=== PATIENT | female | born 1940 | race Two or more races ===

== ENCOUNTER 2017-04-07 11:32 | Inpatient (IN) | payer MEDICARE, MEDICAID ==
[~2017-04-07] VITALS: Ht 157.5 cm; Wt 49.9 kg
[2017-04-07 11:53] VITALS: BP 108/70
[2017-04-07] MEDS ORDERED: ATIVAN1 MG ORAL (12:02)
[2017-04-07] MEDS ORDERED: MULTIVITAMINS1 EAC2 ORAL (12:02)
[2017-04-07] MEDS ORDERED: FLEET ENEMA133 ML RECTAL (12:02)
[2017-04-07] MEDS ORDERED: BISAC-EVAC10 MG RC (12:02)
[2017-04-07] MEDS ORDERED: MILK OF MA400 MG/51 ORAL (12:02)
[2017-04-07] MEDS ORDERED: COLACE100 MG ORAL (12:02)
[2017-04-07] MEDS ORDERED: SENNA8.6 M2 PO (12:03)
[2017-04-07] MEDS ORDERED: ACETAMINOPHEN120 MG RECTAL (12:03)
[2017-04-07] MEDS ORDERED: PROTONIX40 MG ORAL (12:03)
[2017-04-07] MEDS ORDERED: RISPERDAL2 MG ORAL (12:03)
[2017-04-07] MEDS ORDERED: NAMENDA10 MG ORAL (12:03)
[2017-04-07] MEDS ORDERED: ACETAMINOPHEN325 M1 ORAL (12:03)
[2017-04-07 13:38] LABS: BASOPHILS % (AUTO) 0.8 % (0.0-2.0); EOSINOPHILS % (AUTO) 1.4 % (0.0-3.0); LYMPHOCYTES % (AUTO) 23.2 % (20.0-45.0); MEAN CORPUSCULAR HEMOGLOBIN 30.5 PG (27.0-31.0); MEAN CORPUSCULAR VOLUME 95 FL (80-99); MEAN PLATELET VOLUME 6.3 FL (6.5-10.1); NEUTROPHILS % (AUTO) 68.6 % (45.0-75.0); PLATELET COUNT 270 K/UL (150-450); RED BLOOD COUNT 4.65 M/UL (4.20-5.40); RED CELL DISTRIBUTION WIDTH 11.9 % (11.6-14.8); WHITE BLOOD COUNT 6.9 K/UL (4.8-10.8)
--- NOTE | 2017-04-07 13:38 | Diagnostic Imaging Report ---
Indication: Pelvic pain trauma Technique: Continuous helical transaxial imaging of the pelvis was obtained from the iliac crest to the pubic symphysis. Coronal 2-D reformats were also obtained. Study obtained in a Siemens sensation [address] Intravenous non-ionic contrast was administered. Total Dose length Product (DLP): [address] Dose Index Volume (CTDIvol): 11 mGy Comparison: None Findings: No acute fracture is identified. Alignment of the hips is anatomic. There are degenerative changes of the hip joints and sacroiliac joints bilaterally. There is an old fracture of the right pubis. The bones are osteopenic. There is a small left inguinal hernia containing fat. Impression: No acute injury identified. Osteoarthritis of both hips Small left inguinal hernia containing fat The CT scanner at [facility] is accredited by the [employer] and the scans are performed using dose optimization techniques as appropriate to a performed exam including Automatic Exposure control.
[2017-04-07 13:56] LABS: ALANINE AMINOTRANSFERASE 11 U/L (3-33); ANION GAP 15 (5-15); ASPARTATE AMINO TRANSFERASE 18 U/L (5-40); CALCIUM 9.5 mg/dL (8.6-10.2); CARBON DIOXIDE 21 mEQ/L (20-30); CHLORIDE 101 mEQ/L (98-107); CREATININE 0.7 mg/dL (0.5-0.9); HEMOLYSIS 9; POTASSIUM 3.6 mEQ/L (3.4-4.9); SODIUM 137 mEQ/L (135-145); TOTAL PROTEIN 8.3 g/dL (6.6-8.7)
--- NOTE | 2017-04-07 14:08 | Emergency Room Report ---
History of Present Illness General Chief Complaint: Pain Source: Medical Record Present Illness HPI 76-year-old female presents ED complaining of left hip pain times one day. Patient presents from half-way. Patient had x-rays which were negative however patient continues to complain of pain. 03/19, sharp, nonradiating. Unable to bear weight. No trauma noted. No other aggravating relieving factors. Denies any other associated symptoms Allergies: Coded Allergies: PENICILLINS (Verified Allergy, Unknown, 04/07/17) Patient History Past Medical History: none Past Surgical History: none Pertinent Family History: none Social History: Denies: smoking, alcohol use, drug use Last Menstrual Period: n/a Now: No Immunizations: UTD Reviewed Nursing Documentation: PMH: Agreed, PSxH: Agreed Review of Systems All Other Systems: negative except mentioned in HPI Physical Exam Vital Signs Date Time Temp Pulse Resp B/P (MAP) Pulse Ox O2 Delivery O2 Flow Rate FiO2 04/07/17 11:34 98.1 54 16 108/70 95 Sp02 EP Interpretation: reviewed, normal General Appearance: no apparent distress, alert, GCS 15, non-toxic Head: normocephalic, atraumatic Eyes: bilateral eye normal inspection, bilateral eye PERRL ENT: hearing grossly normal, normal pharynx, no angioedema, normal voice Neck: full range of motion, supple/symm/no masses Respiratory: chest non-tender, lungs clear, normal breath sounds, speaking full sentences Cardiovascular #1: regular rate, rhythm, no edema Cardiovascular #2: 2+ carotid (R), 2+ carotid (L), 2+ radial (R), 2+ radial (L) , 2+ dorsalis pedis (R), 2+ dorsalis pedis (L) Gastrointestinal: normal bowel sounds, non tender, soft, non-distended, no guarding, no rebound Rectal: deferred Genitourinary: normal inspection, no CVA tenderness Musculoskeletal: back normal, gait/station normal, decreased range of motion, tender - L hip Neurologic: alert, oriented x3, responsive, motor strength/tone normal, sensory intact, speech normal Psychiatric: judgement/insight normal, memory normal, mood/affect normal, no suicidal/homicidal ideation Reflexes: 3+ bicep (R), 3+ bicep (L), 3+ tricep (R), 3+ tricep (L), 3+ knee (R) , 3+ knee (L) Skin: normal color, no rash, warm/dry, well hydrated Lymphatic: no adenopathy Medical Decision Making Diagnostic Impression: Primary Impression: Acute hip pain Qualified Codes: M25.552 - Pain in left hip ER Course Hospital Course 76year-old female presents to ED with L hip pain Differential diagnoses include: fracture, dislocation, contusion Clinical course Patient placed on stretcher. bus monitor. After initial history and physical I ordered labs, IV fluids, UA, pain medication and CT scan Labs - no leukocytosis, Hb/Hct stable. electrolytes ok. CT pelvis bilateral osteoarthritis, no acute fx Patient given pain medications but still continues to have pain and unable to walk Case discussed with and he agreed to accept the patient to his service for further care and support I feel this is a highly complex case requiring extensive working including EKG/ Rhythm strip, Xray/CT/US, Blood/urine lab work, repeat exams while in ED, and administration of strong opiates/narcotics for pain control, admission to hospital or close patient follow up. Diagnosis - acute hip pain Patient admitted to floor in serious condition Labs Test 04/07/17 13:05 White Blood Count 6.9 K/UL (4.8-10.8) Red Blood Count 4.65 M/UL (4.20-5.40) Hemoglobin 14.2 G/DL (12.0-16.0) Hematocrit 44.3 % (37.0-47.0) Mean Corpuscular Volume 95 FL (80-99) Mean Corpuscular Hemoglobin 30.5 PG (27.0-31.0) Mean Corpuscular Hemoglobin Concent 32.0 G/DL (32.0-36.0) Red Cell Distribution Width 11.9 % (11.6-14.8) Platelet Count 270 K/UL (150-450) Mean Platelet Volume 6.3 FL (6.5-10.1) Neutrophils (%) (Auto) 68.6 % (45.0-75.0) Lymphocytes (%) (Auto) 23.2 % (20.0-45.0) Monocytes (%) (Auto) 6.0 % (1.0-10.0) Eosinophils (%) (Auto) 1.4 % (0.0-3.0) Basophils (%) (Auto) 0.8 % (0.0-2.0) Sodium Level 137 mEQ/L (135-145) Potassium Level 3.6 mEQ/L (3.4-4.9) Chloride Level 101 mEQ/L (98-107) Carbon Dioxide Level 21 mEQ/L (20-30) Anion Gap 15 (5-15) Blood Urea Nitrogen 22 mg/dL (7-23) Creatinine 0.7 mg/dL (0.5-0.9) Estimat Glomerular Filtration Rate mL/min (>60) Glucose Level 100 mg/dL (74-106) Calcium Level 9.5 mg/dL (8.6-10.2) Total Bilirubin 0.6 mg/dL (0.0-1.2) Aspartate Amino Transf (AST/SGOT) 18 U/L (5-40) Alanine Aminotransferase (ALT/SGPT) 11 U/L (3-33) Alkaline Phosphatase 101 U/L (35-104) Total Protein 8.3 g/dL (6.6-8.7) Albumin 4.3 g/dL (3.5-5.2) Globulin 4.0 g/dL Albumin/Globulin Ratio 1.0 (1.0-2.7) CT/MRI/US Diagnostic Results CT/MRI/US Diagnostic Results : Imaging Test Ordered: CT Pelvis Impression no acute fx. osteoarthritis of both hips Last Vital Signs Date Time Temp Pulse Resp B/P (MAP) Pulse Ox O2 Delivery O2 Flow Rate FiO2 04/07/17 11:53 98.1 16 108/70 95 04/07/17 11:34 54 Status: improved Disposition: ADMITTED INPATIENT Condition: Serious Referrals: MARBELLA KIRK (PCP) TOMASZ ESCOBAR M.D. Apr 07, 2017 14:08
[2017-04-07 16:00] VITALS: BP 126/81
[2017-04-07] MEDS ORDERED: Morphine Sulfate 4mg/ml Inj IVP PRN (16:15)
[2017-04-07] MEDS ORDERED: LORazepam Inj 2mg/ml 1ml IV PRN (16:15)
[2017-04-07] MEDS ORDERED: Morphine Sulfate 2mg/ml Inj IVP PRN (16:15)
[2017-04-07] MEDS ORDERED: Miralax 17gm pkt ORAL PRN (16:15)
[2017-04-07] MEDS ORDERED: LORazepam 1mg tab ORAL PRN (16:15)
[2017-04-07] MEDS ORDERED: Zolpidem 5mg tab ORAL PRN (16:15)
[2017-04-07] MEDS ORDERED: Mylanta II UD 30ml ORAL PRN (16:15)
[2017-04-07] MEDS: Memantine 10mg tab ORAL SCH (17:32)
[2017-04-07] MEDS: Heparin 5000 units/ml inj SUBQ SCH (20:51)
--- NOTE | 2017-04-07 23:30 | History and Physical Report ---
DATE OF ADMISSION: 04/07/2017 TIME OF EVALUATION: At 2 p.m. CONSULTANTS: 1. Mervin Steele M.D. 2. Marguerite Zarate M.D. 3. Kiel Foreman M.D. 4. Sara Galo M.D. CHIEF COMPLAINT: 1. Fall. 2. Hip pain. 3. Dementia. BRIEF HISTORY: This is a 76-year-old female, resident of [facility], presented to [facility] ER with increased hip pain, possible fall, increased confusion. The patient was diagnosed with the above and being admitted to medical floor for further treatment. Currently, calm, confused in ER [facility]. No complaints. PAST MEDICAL HISTORY: Dementia, confusion, and weakness. PAST SURGICAL HISTORY: Denies. MEDICATIONS: We will obtain list shortly ALLERGIES: Penicillin. SOCIAL HISTORY: No smoking. No alcohol. No intravenous drug abuse. FAMILY HISTORY: Noncontributory. REVIEW OF SYSTEMS: No chest pain or shortness of breath. No nausea, vomiting, or diarrhea. PHYSICAL EXAMINATION: GENERAL: Calm in bed, oriented x1, no acute distress. VITAL SIGNS: Temperature is 98 degrees, pulse 54, respiratory rate 16, and blood pressure 108/70. CARDIOVASCULAR: No murmur. LUNGS: Poor air exchange. ABDOMEN: Bowel sounds are positive. Nontender and nondistended. EXTREMITIES: No cyanosis, clubbing, or edema. NEUROLOGICAL: The patient moves all extremities, slightly weak LABORATORY DATA: CBC is normal. BMP is normal. ASSESSMENT: 1. Fall. 2. Hip pain. 3. Encephalopathy. 4. Dementia. PLAN: Continue premeds. OT/PT. Dietary evaluation. CBC and BMP in the morning. They will obtain further Radiology testing as per Dr. Foreman. We will resume home medications, pain control. Dr. Steele, Dr. Zarate, Dr. Foreman, and Dr. Galo to consult. We will continue to follow the patient medically. Scooter Woods D.O. DR: Caridad JOB#: [id number] CC:
--- NOTE | 2017-04-08 01:45 | Consultation ---
DATE OF CONSULTATION: 04/07/2017 INFECTIOUS DISEASES CONSULTATION CONSULTING PHYSICIAN: José Miguel Goncalves M.D. REQUESTING PHYSICIAN: Scooter Woods D.O. REASON FOR CONSULTATION: Left hip pain rule out infectious etiology. HISTORY OF PRESENT ILLNESS: The patient is a 76-year-old female with no significant past medical history, was brought in from retirement to [facility] emergency room for chief complaint of left hip pain, which she had for the last 24 hours. Her pain was 8/10, sharp, dull, ache pain localized in the left hip area to the point that she was unable to put weight on it. No radiation of the pain to the back or to the knee. No recent fall or trauma to the left hip. There was no aggravating factor or relieving factor. The patient was admitted to the hospital for evaluation of her left hip pain and I was consulted by the primary provider to rule out infectious etiology of left hip pain. As of note, the patient had CT scan of the pelvis, which showed osteoarthritis and no acute fracture. PAST MEDICAL HISTORY: Negative. PAST SURGICAL HISTORY: Negative. ALLERGIES: She is allergic to penicillin. MEDICATIONS: None in the chart. FAMILY HISTORY: Unable to obtain. SOCIAL HISTORY: She lives in retirement. Denied any recent drugs, tobacco, or alcohol use. REVIEW OF SYSTEMS: A 12-point of system reviewed were all negative apart from the one I mentioned above in my History and Physical. PHYSICAL EXAMINATION: VITAL SIGNS: Temperature 98.1 degrees, pulse 54, respirations 16, blood pressure 108/70, and saturation 95% on room air. GENERAL: An elderly female, up in bed, [place] speaker, awake, alert, not in distress. HEENT: Normocephalic and atraumatic. Pupils are reactive to light. Pale sclerae. Moist oral mucosa. No exudate or thrush. NECK: Supple. No lymphadenopathy. CARDIOVASCULAR: Regular rate and rhythm. No murmur or gallop. LUNGS: Clear bilaterally. No wheezing or rhonchi. ABDOMEN: Soft, nontender, and nondistended. Positive bowel sounds. Left inguinal hernia reducible. No ascites. No organomegaly. EXTREMITIES: No edema or cyanosis. SKIN: No rash or hives. MUSCULOSKELETAL: No joint swelling or muscle tenderness. LABORATORY DATA: Showed a white count of 6.9, hemoglobin of 14.3, and platelet count of 217,000. BUN of 22 and creatinine of 0.7. AST of 18 and ALT of 11. IMAGING STUDIES: CT scan of the pelvis showed no acute injury identified, osteoarthritis of both hips, and small left inguinal hernia containing fat. ASSESSMENT AND RECOMMENDATION: 1. Left hip pain suspect arthritis related process less likely infection, but we will order blood culture to rule out infectious etiology and sedimentation rate with C-reactive protein. We will send rheumatoid factor and NAEEM and to check for any autoimmune related arthritis. We will continue to monitor and make recommendation as necessary. Keep off antibiotics at this point. 2. Left hip pain due to #1. Continue pain management as per the primary provider. Infectious disease will continue to follow. José Miguel Goncalves M.D. DR: MAURO JOB#: [id number] CC:
[2017-04-08 05:33] VITALS: BP 99/69
[2017-04-08 06:54] LABS: BASOPHILS % (AUTO) 0.8 % (0.0-2.0); EOSINOPHILS % (AUTO) 3.7 % (0.0-3.0); LYMPHOCYTES % (AUTO) 20.5 % (20.0-45.0); MEAN CORPUSCULAR HEMOGLOBIN 32.4 PG (27.0-31.0); MEAN CORPUSCULAR VOLUME 96 FL (80-99); MEAN PLATELET VOLUME 6.5 FL (6.5-10.1); MONOCYTES % (AUTO) 9.5 % (1.0-10.0); NEUTROPHILS % (AUTO) 65.5 % (45.0-75.0); PLATELET COUNT 210 K/UL (150-450); RED BLOOD COUNT 4.05 M/UL (4.20-5.40); RED CELL DISTRIBUTION WIDTH 11.9 % (11.6-14.8); WHITE BLOOD COUNT 6.2 K/UL (4.8-10.8)
--- NOTE | 2017-04-08 07:00 | Consultation ---
DATE OF CONSULTATION: 04/07/2017 ORTHOPEDIC CONSULTATION CHIEF COMPLAINT: Bilateral hip pain. HISTORY OF PRESENT ILLNESS: The patient is a 76-year-old female with a history of dementia, who presents with complaints of bilateral hip pain. The patient does not report any trauma. She is unable to bear weight. She is admitted for further care and recommendation. PAST MEDICAL HISTORY: None. PAST SURGICAL HISTORY: None. MEDICATIONS: None. ALLERGIES: None. SOCIAL HISTORY: The patient does not smoke or drink. FAMILY HISTORY: Noncontributory. PHYSICAL EXAMINATION: GENERAL: The patient is alert and oriented. She is resting comfortably in bed. EXTREMITIES: Bilateral hip examination does show pain with internal and external rotation of both right and left hip. Posterior calf is soft. Knee exam is really limited. IMAGING STUDIES: Show osteoarthritis of both right and left hip. ASSESSMENT: Bilateral hip osteoarthritis. DISCUSSION: At this point, there is no evidence of acute fracture. What I recommend is PT and OT. Weightbearing as tolerated with a walker. NSAIDs for pain management. Given that there is no fracture, she should be able to ambulate without any significant issues. Kiel Foreman M.D. DR: LENARD JOB#: [id number] CC: Scooter Woods D.O.
[2017-04-08 07:36] LABS: ALANINE AMINOTRANSFERASE 11 U/L (3-33); ANION GAP 11 (5-15); ASPARTATE AMINO TRANSFERASE 17 U/L (5-40); CALCIUM 9.3 mg/dL (8.6-10.2); CARBON DIOXIDE 26 mEQ/L (20-30); CHLORIDE 104 mEQ/L (98-107); CREATININE 0.8 mg/dL (0.5-0.9); HEMOLYSIS 4; POTASSIUM 3.8 mEQ/L (3.4-4.9); SODIUM 141 mEQ/L (135-145); TOTAL PROTEIN 7.3 g/dL (6.6-8.7)
--- NOTE | 2017-04-08 08:10 | Consultation ---
History of Present Illness General Date patient seen: Apr 08, 2017 Chief Complaint: Pain Present Illness Allergies: Coded Allergies: PENICILLINS (Verified Allergy, Unknown, 04/07/17) Medication History Scheduled Docusate Sodium* (Colace*), 100 MG ORAL DAILY, (Reported) Memantine Hcl* (Namenda*), 10 MG ORAL TWICE A DAY, (Reported) Memantine Hcl* (Namenda*), 10 MG ORAL TWICE A DAY, (Reported) Risperidone* (Risperdal*), 2 MG ORAL BEDTIME, (Reported) Scheduled PRN Acetaminophen* (Acetaminophen 325MG Tablet*), 650 MG ORAL Q4H PRN for For Pain, (Reported) Hydrocodone Bit/Acetaminophen 5-325* ([place] 5-325*), 1 TAB ORAL Q4H PRN for For Pain, (Reported) Lorazepam* (Ativan*), 1 MG ORAL BID PRN for For Anxiety, (Reported) Magnesium Hydroxide* (Milk Of Magnesia*), 30 ML ORAL DAILY PRN for Constipation, (Reported) Ondansetron* (Zofran*), 4 MG ORAL Q6H PRN for Nausea & Vomiting, (Reported) Polyethylene Glycol 3350* (Miralax*), 17 GM ORAL HS PRN for Constipation, ( Reported) Sennosides (Senna), 8.6 MG PO BEDTIME PRN for Constipation, (Reported) Zolpidem Tartrate* (Ambien*), 5 MG ORAL BEDTIME PRN for Insomnia, (Reported) Discontinued Medications Acetaminophen* (Tylenol*), 120 MG RECTAL Q4H PRN for Mild Pain/Temp > 100.5, ( Reported) Discontinued Reason: MD discontinued med Bisacodyl (Bisac-Evac), 10 MG RC DAILY PRN for Constipation, (Reported) Discontinued Reason: MD discontinued med Multivitamins* (Multivitamins*), 1 TAB ORAL DAILY, (Reported) Discontinued Reason: MD discontinued med Na Phos,M-B/Na Phos,Di-Ba* (Fleet Enema*), 133 ML RECTAL DAILY PRN for Constipation, (Reported) Discontinued Reason: MD discontinued med Pantoprazole* (Protonix*), 40 MG ORAL DAILY, (Reported) Discontinued Reason: MD discontinued med Patient History Healthcare decision maker Katie Gonzalez, Daughter Resuscitation status Full Code Advanced Directive on File Physical Exam Last 24 Hour Vital Signs Date Time Temp Pulse Resp B/P (MAP) Pulse Ox O2 Delivery O2 Flow Rate FiO2 04/08/17 05:33 96.4 89 20 99/69 98 Room Air 04/08/17 00:00 Room Air 04/07/17 16:00 97.8 82 19 126/81 95 Room Air 04/07/17 14:10 98.1 16 108/70 95 04/07/17 11:53 98.1 16 108/70 95 04/07/17 11:34 98.1 54 16 108/70 95 Laboratory Tests Test 04/07/17 13:05 04/07/17 20:50 04/08/17 05:00 White Blood Count 6.9 K/UL (4.8-10.8) 6.2 K/UL (4.8-10.8) Red Blood Count 4.65 M/UL (4.20-5.40) 4.05 M/UL (4.20-5.40) L Hemoglobin 14.2 G/DL (12.0-16.0) 13.1 G/DL (12.0-16.0) Hematocrit 44.3 % (37.0-47.0) 38.7 % (37.0-47.0) Mean Corpuscular Volume 95 FL (80-99) 96 FL (80-99) Mean Corpuscular Hemoglobin 30.5 PG (27.0-31.0) 32.4 PG (27.0-31.0) H Mean Corpuscular Hemoglobin Concent 32.0 G/DL (32.0-36.0) 34.0 G/DL (32.0-36.0) Red Cell Distribution Width 11.9 % (11.6-14.8) 11.9 % (11.6-14.8) Platelet Count 270 K/UL (150-450) 210 K/UL (150-450) Mean Platelet Volume 6.3 FL (6.5-10.1) L 6.5 FL (6.5-10.1) Neutrophils (%) (Auto) 68.6 % (45.0-75.0) 65.5 % (45.0-75.0) Lymphocytes (%) (Auto) 23.2 % (20.0-45.0) 20.5 % (20.0-45.0) Monocytes (%) (Auto) 6.0 % (1.0-10.0) 9.5 % (1.0-10.0) Eosinophils (%) (Auto) 1.4 % (0.0-3.0) 3.7 % (0.0-3.0) H Basophils (%) (Auto) 0.8 % (0.0-2.0) 0.8 % (0.0-2.0) Erythrocyte Sedimentation Rate 40 MM/HR (0-30) H Sodium Level 137 mEQ/L (135-145) 141 mEQ/L (135-145) Potassium Level 3.6 mEQ/L (3.4-4.9) 3.8 mEQ/L (3.4-4.9) Chloride Level 101 mEQ/L (98-107) 104 mEQ/L (98-107) Carbon Dioxide Level 21 mEQ/L (20-30) 26 mEQ/L (20-30) Anion Gap 15 (5-15) 11 (5-15) Blood Urea Nitrogen 22 mg/dL (7-23) 21 mg/dL (7-23) Creatinine 0.7 mg/dL (0.5-0.9) 0.8 mg/dL (0.5-0.9) Estimat Glomerular Filtration Rate mL/min (>60) mL/min (>60) Glucose Level 100 mg/dL (74-106) 97 mg/dL (74-106) Calcium Level 9.5 mg/dL (8.6-10.2) 9.3 mg/dL (8.6-10.2) Total Bilirubin 0.6 mg/dL (0.0-1.2) 0.5 mg/dL (0.0-1.2) Aspartate Amino Transf (AST/SGOT) 18 U/L (5-40) 17 U/L (5-40) Alanine Aminotransferase (ALT/SGPT) 11 U/L (3-33) 11 U/L (3-33) Alkaline Phosphatase 101 U/L (35-104) 97 U/L (35-104) C-Reactive Protein, Quantitative < 0.3 mg/dL (< 0.5) Total Protein 8.3 g/dL (6.6-8.7) 7.3 g/dL (6.6-8.7) Albumin 4.3 g/dL (3.5-5.2) 3.8 g/dL (3.5-5.2) Globulin 4.0 g/dL 3.5 g/dL Albumin/Globulin Ratio 1.0 (1.0-2.7) 1.0 (1.0-2.7) Rheumatoid Factor Screen Pending Anti-Nuclear Antibody Screen Pending Thyroid Stimulating Hormone (TSH) Pending Height (Feet): 5 Height (Inches): 2.00 Weight (Pounds): 110 Medications Current Medications Medications (Trade) Dose Ordered Sig/Miguelina Route PRN Reason Start Time Stop Time Status Last Admin Dose Admin Acetaminophen (Tylenol) 650 mg Q4H PRN ORAL fever 04/07/17 16:15 05/07/17 16:14 Al Hydroxide/Mg Hydroxide (Mylanta II) 30 ml Q6H PRN ORAL dyspepsia 04/07/17 16:15 05/07/17 16:14 Dextrose (Dextrose 50%) STAT PRN IV Hypoglycemia 04/07/17 16:15 05/07/17 16:14 Docusate Sodium (Colace) 100 mg DAILY ORAL 04/08/17 09:00 05/08/17 08:59 Heparin Sodium (Porcine) (Heparin 5000 units/ml) 5,000 units EVERY 12 HOURS SUBQ 04/07/17 21:00 05/07/17 20:59 Lorazepam (Ativan 2mg/ml 1ml) 0.5 mg Q4H PRN IV For Anxiety 04/07/17 16:15 04/14/17 16:14 Lorazepam (Ativan) 1 mg BIDPRN PRN ORAL For Anxiety 04/07/17 16:15 04/14/17 16:14 04/07/17 19:48 Memantine (Namenda) 10 mg TWICE A DAY ORAL 04/07/17 18:00 05/07/17 17:59 04/07/17 17:32 Morphine Sulfate (Morphine Sulfate) 2 mg Q4H PRN IVP For Pain 4-6 04/07/17 16:15 04/14/17 16:14 Morphine Sulfate (Morphine Sulfate) 4 mg Q4H PRN IVP For Pain 7-10 04/07/17 16:15 04/14/17 16:14 Ondansetron HCl (Zofran) 4 mg Q6H PRN IVP Nausea & Vomiting 04/07/17 16:15 05/07/17 16:14 Polyethylene Glycol (Miralax) 17 gm HSPRN PRN ORAL Constipation 04/07/17 16:15 05/07/17 16:14 Risperidone (RisperDAL) 2 mg BEDTIME ORAL 04/07/17 21:00 05/07/17 20:59 04/07/17 20:37 Sennosides (Senokot) 8.6 mg HSPRN PRN ORAL Constipation 04/07/17 16:15 05/07/17 16:14 Zolpidem Tartrate (Ambien) 5 mg HSPRN PRN ORAL Insomnia 04/07/17 16:15 04/14/17 16:14 Assessment/Plan Assessment/Plan (1) B/L Hip pain (2) B/L Hip Osteoarthritis (3) Dementia seen dictated. GIOVANNY DE OLIVEIRA Apr 08, 2017 08:10
[2017-04-08 08:12] VITALS: BP 93/63
[2017-04-08] MEDS ORDERED: Norco 5mg/325mg tab ORAL PRN (08:15)
[2017-04-08 08:41] LABS: THYROID STIMULATING HORMONE 0.419 uIU/mL (0.300-4.500)
[2017-04-08] MEDS ORDERED: Docusate 100mg cap ORAL SCH (09:00)
[2017-04-08] MEDS: Memantine 10mg tab ORAL SCH (09:04)
[2017-04-08] MEDS: Heparin 5000 units/ml inj SUBQ SCH (09:08)
--- NOTE | 2017-04-08 10:33 | Consultation ---
History of Present Illness General Date patient seen: Apr 07, 2017 Chief Complaint: Pain Present Illness HPI the pt was seen yesterday 4E. 76-year-old female, resident of [facility] , presented to [place] [facility] with increased hip pain, possible fall, increased confusion. the pt was restless and agitated attempting to come out of bed, the pt croatian speaking only the pt was confused unable to provide hx she thought she lives with daughter. the pt was only oriented to self. she remained calm and pleasant. +delusion Allergies: Coded Allergies: PENICILLINS (Verified Allergy, Unknown, 04/07/17) Medication History Scheduled Docusate Sodium* (Colace*), 100 MG ORAL DAILY, (Reported) Memantine Hcl* (Namenda*), 10 MG ORAL TWICE A DAY, (Reported) Multivitamins* (Multivitamins*), 1 TAB ORAL DAILY, (Reported) Pantoprazole* (Protonix*), 40 MG ORAL DAILY, (Reported) Risperidone* (Risperdal*), 2 MG ORAL BEDTIME, (Reported) Scheduled PRN Acetaminophen* (Tylenol*), 120 MG RECTAL Q4H PRN for Mild Pain/Temp > 100.5, ( Reported) Acetaminophen* (Acetaminophen 325MG Tablet*), 650 MG ORAL Q4H PRN for For Pain, (Reported) Bisacodyl (Bisac-Evac), 10 MG RC DAILY PRN for Constipation, (Reported) Lorazepam* (Ativan*), 1 MG ORAL BID PRN for For Anxiety, (Reported) Magnesium Hydroxide* (Milk Of Magnesia*), 30 ML ORAL DAILY PRN for Constipation, (Reported) Na Phos,M-B/Na Phos,Di-Ba* (Fleet Enema*), 133 ML RECTAL DAILY PRN for Constipation, (Reported) Sennosides (Senna), 8.6 MG PO BEDTIME PRN for Constipation, (Reported) Patient History History Provided By: Patient, Significant Other, PMD Healthcare decision maker Katie Gonzalez, Reynaldo Resuscitation status Full Code Advanced Directive on File Past Medical/Surgical History Past Medical/Surgical History: (1) Acute hip pain Review of Systems Constitutional: Reports: malaise, weakness Psychiatric: Reports: emotional problems, hallucinations Physical Exam General Appearance: alert, confused, mild distress Neurologic: alert, responsive, disoriented, depressed affect Last 24 Hour Vital Signs Date Time Temp Pulse Resp B/P (MAP) Pulse Ox O2 Delivery O2 Flow Rate FiO2 04/08/17 08:12 97.7 97 21 93/63 98 Room Air 04/08/17 05:33 96.4 89 20 99/69 98 Room Air 04/08/17 00:00 Room Air 04/07/17 16:00 97.8 82 19 126/81 95 Room Air 04/07/17 14:10 98.1 16 108/70 95 04/07/17 11:53 98.1 16 108/70 95 04/07/17 11:34 98.1 54 16 108/70 95 Laboratory Tests Test 04/07/17 13:05 04/07/17 20:50 04/08/17 05:00 White Blood Count 6.9 K/UL (4.8-10.8) 6.2 K/UL (4.8-10.8) Red Blood Count 4.65 M/UL (4.20-5.40) 4.05 M/UL (4.20-5.40) L Hemoglobin 14.2 G/DL (12.0-16.0) 13.1 G/DL (12.0-16.0) Hematocrit 44.3 % (37.0-47.0) 38.7 % (37.0-47.0) Mean Corpuscular Volume 95 FL (80-99) 96 FL (80-99) Mean Corpuscular Hemoglobin 30.5 PG (27.0-31.0) 32.4 PG (27.0-31.0) H Mean Corpuscular Hemoglobin Concent 32.0 G/DL (32.0-36.0) 34.0 G/DL (32.0-36.0) Red Cell Distribution Width 11.9 % (11.6-14.8) 11.9 % (11.6-14.8) Platelet Count 270 K/UL (150-450) 210 K/UL (150-450) Mean Platelet Volume 6.3 FL (6.5-10.1) L 6.5 FL (6.5-10.1) Neutrophils (%) (Auto) 68.6 % (45.0-75.0) 65.5 % (45.0-75.0) Lymphocytes (%) (Auto) 23.2 % (20.0-45.0) 20.5 % (20.0-45.0) Monocytes (%) (Auto) 6.0 % (1.0-10.0) 9.5 % (1.0-10.0) Eosinophils (%) (Auto) 1.4 % (0.0-3.0) 3.7 % (0.0-3.0) H Basophils (%) (Auto) 0.8 % (0.0-2.0) 0.8 % (0.0-2.0) Erythrocyte Sedimentation Rate 40 MM/HR (0-30) H Sodium Level 137 mEQ/L (135-145) 141 mEQ/L (135-145) Potassium Level 3.6 mEQ/L (3.4-4.9) 3.8 mEQ/L (3.4-4.9) Chloride Level 101 mEQ/L (98-107) 104 mEQ/L (98-107) Carbon Dioxide Level 21 mEQ/L (20-30) 26 mEQ/L (20-30) Anion Gap 15 (5-15) 11 (5-15) Blood Urea Nitrogen 22 mg/dL (7-23) 21 mg/dL (7-23) Creatinine 0.7 mg/dL (0.5-0.9) 0.8 mg/dL (0.5-0.9) Estimat Glomerular Filtration Rate mL/min (>60) mL/min (>60) Glucose Level 100 mg/dL (74-106) 97 mg/dL (74-106) Calcium Level 9.5 mg/dL (8.6-10.2) 9.3 mg/dL (8.6-10.2) Total Bilirubin 0.6 mg/dL (0.0-1.2) 0.5 mg/dL (0.0-1.2) Aspartate Amino Transf (AST/SGOT) 18 U/L (5-40) 17 U/L (5-40) Alanine Aminotransferase (ALT/SGPT) 11 U/L (3-33) 11 U/L (3-33) Alkaline Phosphatase 101 U/L (35-104) 97 U/L (35-104) C-Reactive Protein, Quantitative < 0.3 mg/dL (< 0.5) Total Protein 8.3 g/dL (6.6-8.7) 7.3 g/dL (6.6-8.7) Albumin 4.3 g/dL (3.5-5.2) 3.8 g/dL (3.5-5.2) Globulin 4.0 g/dL 3.5 g/dL Albumin/Globulin Ratio 1.0 (1.0-2.7) 1.0 (1.0-2.7) Rheumatoid Factor Screen Pending Anti-Nuclear Antibody Screen Pending Thyroid Stimulating Hormone (TSH) 0.419 uIU/mL (0.300-4.500) Height (Feet): 5 Height (Inches): 2.00 Weight (Pounds): 110 Medications Current Medications Medications (Trade) Dose Ordered Sig/Miguelina Route PRN Reason Start Time Stop Time Status Last Admin Dose Admin Acetaminophen (Tylenol) 650 mg Q4H PRN ORAL fever 04/07/17 16:15 05/07/17 16:14 Acetaminophen/ Hydrocodone Bitart (Morrison 5/325) 1 tab Q4H PRN ORAL severe Pain 04/08/17 08:15 04/15/17 08:14 Al Hydroxide/Mg Hydroxide (Mylanta II) 30 ml Q6H PRN ORAL dyspepsia 04/07/17 16:15 05/07/17 16:14 Dextrose (Dextrose 50%) STAT PRN IV Hypoglycemia 04/07/17 16:15 05/07/17 16:14 Docusate Sodium (Colace) 100 mg DAILY ORAL 04/08/17 09:00 05/08/17 08:59 04/08/17 09:04 Heparin Sodium (Porcine) (Heparin 5000 units/ml) 5,000 units EVERY 12 HOURS SUBQ 04/07/17 21:00 05/07/17 20:59 04/08/17 09:08 Lorazepam (Ativan 2mg/ml 1ml) 0.5 mg Q4H PRN IV For Anxiety 04/07/17 16:15 04/14/17 16:14 Lorazepam (Ativan) 1 mg BIDPRN PRN ORAL For Anxiety 04/07/17 16:15 04/14/17 16:14 04/07/17 19:48 Memantine (Namenda) 10 mg TWICE A DAY ORAL 04/07/17 18:00 05/07/17 17:59 04/08/17 09:04 Ondansetron HCl (Zofran) 4 mg Q6H PRN IVP Nausea & Vomiting 04/07/17 16:15 05/07/17 16:14 Polyethylene Glycol (Miralax) 17 gm HSPRN PRN ORAL Constipation 04/07/17 16:15 05/07/17 16:14 Risperidone (RisperDAL) 2 mg BEDTIME ORAL 04/07/17 21:00 05/07/17 20:59 04/07/17 20:37 Sennosides (Senokot) 8.6 mg HSPRN PRN ORAL Constipation 04/07/17 16:15 05/07/17 16:14 Zolpidem Tartrate (Ambien) 5 mg HSPRN PRN ORAL Insomnia 04/07/17 16:15 04/14/17 16:14 Assessment/Plan Status: stable Assessment/Plan Cognitive impairment, psychotic d/o most likely schizophrenia -risperdal 2mg qh Leonel Bland M.D. Apr 08, 2017 10:33
[2017-04-08 11:36] VITALS: BP 95/53
--- NOTE | 2017-04-08 12:57 | General Progress Note ---
Assessment/Plan Problem List: (1) Advanced dementia ICD Codes: F03.90 - Unspecified dementia without behavioral disturbance SNOMED: 93974944 (2) Arthritis ICD Codes: M19.90 - Unspecified osteoarthritis, unspecified site SNOMED: 4073130 (3) Acute hip pain ICD Codes: M25.559 - Pain in unspecified hip SNOMED: 79138993 Qualifiers: Qualified Codes: M25.552 - Pain in left hip Status: stable, progressing, tolerating diet Assessment/Plan ot pt diet pain control cbc bmp am dc plan Subjective Constitutional: Reports: weakness Allergies: Coded Allergies: PENICILLINS (Verified Allergy, Unknown, 04/07/17) All Systems: reviewed and negative except above Subjective calm in room Objective Last 24 Hour Vital Signs Date Time Temp Pulse Resp B/P (MAP) Pulse Ox O2 Delivery O2 Flow Rate FiO2 04/08/17 11:36 97.4 99 18 95/53 Room Air 04/08/17 08:12 97.7 97 21 93/63 98 Room Air 04/08/17 05:33 96.4 89 20 99/69 98 Room Air 04/08/17 00:00 Room Air 04/07/17 16:00 97.8 82 19 126/81 95 Room Air 04/07/17 14:10 98.1 16 108/70 95 Laboratory Tests 04/07/17 13:05: White Blood Count 6.9, Red Blood Count 4.65, Hemoglobin 14.2, Hematocrit 44.3, Mean Corpuscular Volume 95, Mean Corpuscular Hemoglobin 30.5, Mean Corpuscular Hemoglobin Concent 32.0, Red Cell Distribution Width 11.9, Platelet Count 270, Mean Platelet Volume 6.3L, Neutrophils (%) (Auto) 68.6, Lymphocytes (%) (Auto) 23.2, Monocytes (%) (Auto) 6.0, Eosinophils (%) (Auto) 1.4, Basophils (%) (Auto ) 0.8, Erythrocyte Sedimentation Rate 40H, Sodium Level 137, Potassium Level 3.6 , Chloride Level 101, Carbon Dioxide Level 21, Anion Gap 15, Blood Urea Nitrogen 22, Creatinine 0.7, Estimat Glomerular Filtration Rate , Glucose Level 100, Calcium Level 9.5, Total Bilirubin 0.6, Aspartate Amino Transf (AST/SGOT) 18, Alanine Aminotransferase (ALT/SGPT) 11, Alkaline Phosphatase 101, C- Reactive Protein, Quantitative < 0.3, Total Protein 8.3, Albumin 4.3, Globulin 4.0, Albumin/Globulin Ratio 1.0 04/07/17 20:50: Rheumatoid Factor Screen [Pending], Anti-Nuclear Antibody Screen [Pending] 04/08/17 05:00: White Blood Count 6.2, Red Blood Count 4.05L, Hemoglobin 13.1, Hematocrit 38.7, Mean Corpuscular Volume 96, Mean Corpuscular Hemoglobin 32.4H, Mean Corpuscular Hemoglobin Concent 34.0, Red Cell Distribution Width 11.9, Platelet Count 210, Mean Platelet Volume 6.5, Neutrophils (%) (Auto) 65.5, Lymphocytes (%) (Auto) 20.5, Monocytes (%) (Auto) 9.5, Eosinophils (%) (Auto) 3.7H, Basophils (%) (Auto ) 0.8, Sodium Level 141, Potassium Level 3.8, Chloride Level 104, Carbon Dioxide Level 26, Anion Gap 11, Blood Urea Nitrogen 21, Creatinine 0.8, Estimat Glomerular Filtration Rate , Glucose Level 97, Calcium Level 9.3, Total Bilirubin 0.5, Aspartate Amino Transf (AST/SGOT) 17, Alanine Aminotransferase ( ALT/SGPT) 11, Alkaline Phosphatase 97, Total Protein 7.3, Albumin 3.8, Globulin 3.5, Albumin/Globulin Ratio 1.0, Thyroid Stimulating Hormone (TSH) 0.419 Height (Feet): 5 Height (Inches): 2.00 Weight (Pounds): 110 General Appearance: confused EENT: normal ENT inspection Neck: normal alignment Cardiovascular: normal peripheral pulses, normal rate, regular rhythm Respiratory/Chest: chest wall non-tender, lungs clear, normal breath sounds Abdomen: normal bowel sounds, non tender, soft Extremities: normal inspection Edema: no edema noted Arm (L), no edema noted Arm (R), no edema noted Leg (L), no edema noted Leg (R), no edema noted Pedal (L), no edema noted Pedal (R), no edema noted Generalized Neurologic: motor weakness Skin: normal pigmentation, warm/dry MARBELLA KIRK Apr 08, 2017 12:57
[2017-04-08] MEDS ORDERED: NAMENDA10 MG ORAL (14:13)
[2017-04-08] MEDS ORDERED: ZOFRAN4 M3 ORAL (14:13)
[2017-04-08] MEDS ORDERED: MIRALAX17 G2 ORAL (14:13)
[2017-04-08] MEDS ORDERED: NORCO 5-325 TA1 EACH ORAL (14:13)
[2017-04-08] MEDS ORDERED: AMBIEN5 MG ORAL (14:14)
--- NOTE | 2017-04-08 14:46 | Infectious Diseases Prog Note ---
Assessment/Plan Problems: (1) Arthritis Assessment & Plan: of the left hip, doubt septic joint with no fever or elevated WBC, and no local tenderness, blood culture is pending , continue pain management and PT/OT. autoimmune work up in progress , follow up with rheumatology (2) Acute hip pain Assessment & Plan: due to the above, continue pain management (3) Advanced dementia Assessment & Plan: continue supportive care Subjective Constitutional: Reports: no symptoms HEENT: Reports: no symptoms Respiratory: Reports: no symptoms Breasts: Reports: no symptoms Cardiovascular: Reports: no symptoms Gastrointestinal/Abdominal: Reports: no symptoms Genitourinary: Reports: no symptoms Neurologic: Reports: no symptoms Psychiatric: Reports: no symptoms Skin: Reports: no symptoms Endocrine: Reports: no symptoms Hematologic: Reports: no symptoms Musculoskeletal: Reports: no symptoms Allergies: Coded Allergies: PENICILLINS (Verified Allergy, Unknown, 04/07/17) Objective Vital Signs Last 24 Hour Vital Signs Date Time Temp Pulse Resp B/P (MAP) Pulse Ox O2 Delivery O2 Flow Rate FiO2 04/08/17 11:36 97.4 99 18 95/53 Room Air 04/08/17 08:12 97.7 97 21 93/63 98 Room Air 04/08/17 05:33 96.4 89 20 99/69 98 Room Air 04/08/17 00:00 Room Air 04/07/17 16:00 97.8 82 19 126/81 95 Room Air Height (Feet): 5 Height (Inches): 2.00 Weight (Pounds): 110 General Appearance: WD/WN, no acute distress HEENT: normocephalic, atraumatic, anicteric, mucous membranes moist, PERRL Respiratory/Chest: chest wall non-tender, lungs clear, normal breath sounds, no respiratory distress, no accessory muscle use, decreased breath sounds, crackles/rales Cardiovascular: normal peripheral pulses, normal rate, regular rhythm, no gallop/murmur, no JVD Abdomen: normal bowel sounds, soft, non tender, no organomegaly, non distended , no mass, no scars Extremities: no cyanosis, no clubbing Skin: no rash, no lesions, no ulcers Neurologic/Psychiatric: alert, oriented x 3 Lymphatic: no neck adenopathy, no groin adenopathy Musculoskeletal: normal muscle bulk, no effusion Laboratory Tests Test 04/07/17 20:50 04/08/17 05:00 Rheumatoid Factor Screen Pending Anti-Nuclear Antibody Screen Pending White Blood Count 6.2 K/UL (4.8-10.8) Red Blood Count 4.05 M/UL (4.20-5.40) L Hemoglobin 13.1 G/DL (12.0-16.0) Hematocrit 38.7 % (37.0-47.0) Mean Corpuscular Volume 96 FL (80-99) Mean Corpuscular Hemoglobin 32.4 PG (27.0-31.0) H Mean Corpuscular Hemoglobin Concent 34.0 G/DL (32.0-36.0) Red Cell Distribution Width 11.9 % (11.6-14.8) Platelet Count 210 K/UL (150-450) Mean Platelet Volume 6.5 FL (6.5-10.1) Neutrophils (%) (Auto) 65.5 % (45.0-75.0) Lymphocytes (%) (Auto) 20.5 % (20.0-45.0) Monocytes (%) (Auto) 9.5 % (1.0-10.0) Eosinophils (%) (Auto) 3.7 % (0.0-3.0) H Basophils (%) (Auto) 0.8 % (0.0-2.0) Sodium Level 141 mEQ/L (135-145) Potassium Level 3.8 mEQ/L (3.4-4.9) Chloride Level 104 mEQ/L (98-107) Carbon Dioxide Level 26 mEQ/L (20-30) Anion Gap 11 (5-15) Blood Urea Nitrogen 21 mg/dL (7-23) Creatinine 0.8 mg/dL (0.5-0.9) Estimat Glomerular Filtration Rate mL/min (>60) Glucose Level 97 mg/dL (74-106) Calcium Level 9.3 mg/dL (8.6-10.2) Total Bilirubin 0.5 mg/dL (0.0-1.2) Aspartate Amino Transf (AST/SGOT) 17 U/L (5-40) Alanine Aminotransferase (ALT/SGPT) 11 U/L (3-33) Alkaline Phosphatase 97 U/L (35-104) Total Protein 7.3 g/dL (6.6-8.7) Albumin 3.8 g/dL (3.5-5.2) Globulin 3.5 g/dL Albumin/Globulin Ratio 1.0 (1.0-2.7) Thyroid Stimulating Hormone (TSH) 0.419 uIU/mL (0.300-4.500) Current Medications Medications (Trade) Dose Ordered Sig/Miguelina Route PRN Reason Start Time Stop Time Status Last Admin Dose Admin Acetaminophen (Tylenol) 650 mg Q4H PRN ORAL fever 04/07/17 16:15 05/07/17 16:14 Acetaminophen/ Hydrocodone Bitart ([place] 5/325) 1 tab Q4H PRN ORAL severe Pain 04/08/17 08:15 04/15/17 08:14 Al Hydroxide/Mg Hydroxide (Mylanta II) 30 ml Q6H PRN ORAL dyspepsia 04/07/17 16:15 05/07/17 16:14 Dextrose (Dextrose 50%) STAT PRN IV Hypoglycemia 04/07/17 16:15 05/07/17 16:14 Docusate Sodium (Colace) 100 mg DAILY ORAL 04/08/17 09:00 05/08/17 08:59 04/08/17 09:04 Heparin Sodium (Porcine) (Heparin 5000 units/ml) 5,000 units EVERY 12 HOURS SUBQ 04/07/17 21:00 05/07/17 20:59 04/08/17 09:08 Lorazepam (Ativan 2mg/ml 1ml) 0.5 mg Q4H PRN IV For Anxiety 04/07/17 16:15 04/14/17 16:14 Lorazepam (Ativan) 1 mg BIDPRN PRN ORAL For Anxiety 04/07/17 16:15 04/14/17 16:14 04/07/17 19:48 Memantine (Namenda) 10 mg TWICE A DAY ORAL 04/07/17 18:00 05/07/17 17:59 04/08/17 09:04 Ondansetron HCl (Zofran) 4 mg Q6H PRN IVP Nausea & Vomiting 04/07/17 16:15 05/07/17 16:14 Polyethylene Glycol (Miralax) 17 gm HSPRN PRN ORAL Constipation 04/07/17 16:15 05/07/17 16:14 Risperidone (RisperDAL) 2 mg BEDTIME ORAL 04/07/17 21:00 05/07/17 20:59 04/07/17 20:37 Sennosides (Senokot) 8.6 mg HSPRN PRN ORAL Constipation 04/07/17 16:15 05/07/17 16:14 Zolpidem Tartrate (Ambien) 5 mg HSPRN PRN ORAL Insomnia 04/07/17 16:15 04/14/17 16:14 José Miguel Goncalves M.D. Apr 08, 2017 14:46
[2017-04-08 15:53] VITALS: BP 107/62
--- NOTE | 2017-04-08 18:58 | Consultation ---
History of Present Illness General Date patient seen: Apr 08, 2017 Chief Complaint: Pain Reason for Consultation: inpaitent management Present Illness HPI 76-year-old female presents ED complaining of left hip pain times one day from [facility]. Patient had x-rays which were negative however patient continues to complain of pain. 03/19, sharp, nonradiating. Unable to bear weight. No trauma noted. No other aggravating relieving factors. Denies any other associated symptoms. She is admitted for intractable pain. Allergies: Coded Allergies: PENICILLINS (Verified Allergy, Unknown, 04/07/17) Medication History Scheduled Docusate Sodium* (Colace*), 100 MG ORAL DAILY, (Reported) Memantine Hcl* (Namenda*), 10 MG ORAL TWICE A DAY, (Reported) Memantine Hcl* (Namenda*), 10 MG ORAL TWICE A DAY, (Reported) Risperidone* (Risperdal*), 2 MG ORAL BEDTIME, (Reported) Scheduled PRN Acetaminophen* (Acetaminophen 325MG Tablet*), 650 MG ORAL Q4H PRN for For Pain, (Reported) Hydrocodone Bit/Acetaminophen 5-325* (Randolph 5-325*), 1 TAB ORAL Q4H PRN for For Pain, (Reported) Lorazepam* (Ativan*), 1 MG ORAL BID PRN for For Anxiety, (Reported) Magnesium Hydroxide* (Milk Of Magnesia*), 30 ML ORAL DAILY PRN for Constipation, (Reported) Ondansetron* (Zofran*), 4 MG ORAL Q6H PRN for Nausea & Vomiting, (Reported) Polyethylene Glycol 3350* (Miralax*), 17 GM ORAL HS PRN for Constipation, ( Reported) Sennosides (Senna), 8.6 MG PO BEDTIME PRN for Constipation, (Reported) Zolpidem Tartrate* (Ambien*), 5 MG ORAL BEDTIME PRN for Insomnia, (Reported) Discontinued Medications Acetaminophen* (Tylenol*), 120 MG RECTAL Q4H PRN for Mild Pain/Temp > 100.5, ( Reported) Discontinued Reason: MD discontinued med Bisacodyl (Bisac-Evac), 10 MG RC DAILY PRN for Constipation, (Reported) Discontinued Reason: MD discontinued med Multivitamins* (Multivitamins*), 1 TAB ORAL DAILY, (Reported) Discontinued Reason: MD discontinued med Na Phos,M-B/Na Phos,Di-Ba* (Fleet Enema*), 133 ML RECTAL DAILY PRN for Constipation, (Reported) Discontinued Reason: MD discontinued med Pantoprazole* (Protonix*), 40 MG ORAL DAILY, (Reported) Discontinued Reason: MD discontinued med Patient History Healthcare decision maker Katie Gonzalez, Daughter Resuscitation status Full Code Advanced Directive on File Past Medical/Surgical History Past Medical/Surgical History: (1) Dementia (2) Depression (3) COPD (chronic obstructive pulmonary disease) Review of Systems All Other Systems: negative except mentioned in HPI Physical Exam General Appearance: WD/WN Lines, tubes and drains: peripheral, central line HEENT: normocephalic, atraumatic Neck: non-tender, normal alignment Respiratory/Chest: chest wall non-tender, lungs clear Breasts: no masses Cardiovascular/Chest: normal peripheral pulses Abdomen: normal bowel sounds, non tender Genitourinary/Rectal: normal genital exam Extremities: normal range of motion Last 24 Hour Vital Signs Date Time Temp Pulse Resp B/P (MAP) Pulse Ox O2 Delivery O2 Flow Rate FiO2 04/08/17 15:53 97.3 82 19 107/62 98 Room Air 04/08/17 11:36 97.4 99 18 95/53 Room Air 04/08/17 08:12 97.7 97 21 93/63 98 Room Air 04/08/17 05:33 96.4 89 20 99/69 98 Room Air 04/08/17 00:00 Room Air Laboratory Tests Test 04/07/17 20:50 04/08/17 05:00 Rheumatoid Factor Screen Pending Anti-Nuclear Antibody Screen Pending White Blood Count 6.2 K/UL (4.8-10.8) Red Blood Count 4.05 M/UL (4.20-5.40) L Hemoglobin 13.1 G/DL (12.0-16.0) Hematocrit 38.7 % (37.0-47.0) Mean Corpuscular Volume 96 FL (80-99) Mean Corpuscular Hemoglobin 32.4 PG (27.0-31.0) H Mean Corpuscular Hemoglobin Concent 34.0 G/DL (32.0-36.0) Red Cell Distribution Width 11.9 % (11.6-14.8) Platelet Count 210 K/UL (150-450) Mean Platelet Volume 6.5 FL (6.5-10.1) Neutrophils (%) (Auto) 65.5 % (45.0-75.0) Lymphocytes (%) (Auto) 20.5 % (20.0-45.0) Monocytes (%) (Auto) 9.5 % (1.0-10.0) Eosinophils (%) (Auto) 3.7 % (0.0-3.0) H Basophils (%) (Auto) 0.8 % (0.0-2.0) Sodium Level 141 mEQ/L (135-145) Potassium Level 3.8 mEQ/L (3.4-4.9) Chloride Level 104 mEQ/L (98-107) Carbon Dioxide Level 26 mEQ/L (20-30) Anion Gap 11 (5-15) Blood Urea Nitrogen 21 mg/dL (7-23) Creatinine 0.8 mg/dL (0.5-0.9) Estimat Glomerular Filtration Rate mL/min (>60) Glucose Level 97 mg/dL (74-106) Calcium Level 9.3 mg/dL (8.6-10.2) Total Bilirubin 0.5 mg/dL (0.0-1.2) Aspartate Amino Transf (AST/SGOT) 17 U/L (5-40) Alanine Aminotransferase (ALT/SGPT) 11 U/L (3-33) Alkaline Phosphatase 97 U/L (35-104) Total Protein 7.3 g/dL (6.6-8.7) Albumin 3.8 g/dL (3.5-5.2) Globulin 3.5 g/dL Albumin/Globulin Ratio 1.0 (1.0-2.7) Thyroid Stimulating Hormone (TSH) 0.419 uIU/mL (0.300-4.500) Height (Feet): 5 Height (Inches): 2.00 Weight (Pounds): 110 Assessment/Plan Problem List: (1) Intractable pain ICD Codes: R52 - Pain, unspecified SNOMED: 03332188 (2) Advanced dementia ICD Codes: F03.90 - Unspecified dementia without behavioral disturbance SNOMED: 43953690 (3) COPD (chronic obstructive pulmonary disease) ICD Codes: J44.9 - Chronic obstructive pulmonary disease, unspecified SNOMED: 06945568 (4) Dementia ICD Codes: F03.90 - Unspecified dementia without behavioral disturbance SNOMED: 90772297 (5) Depression ICD Codes: F32.9 - Major depressive disorder, single episode, unspecified SNOMED: 20078779 Assessment/Plan symptomatic treatment Pain management ortho evaluation respiratory treatment titirate fio2 to sat of 92% dvt prophylaxis ERMIAS HOBSON Apr 08, 2017 18:58
--- NOTE | 2017-04-09 00:10 | General Progress Note ---
Assessment/Plan Status: stable, progressing Subjective Constitutional: Reports: malaise, weakness Neurologic/Psychiatric: Reports: anxiety, emotional problems Allergies: Coded Allergies: PENICILLINS (Verified Allergy, Unknown, 04/07/17) Objective Last 24 Hour Vital Signs Date Time Temp Pulse Resp B/P (MAP) Pulse Ox O2 Delivery O2 Flow Rate FiO2 04/08/17 15:53 97.3 82 19 107/62 98 Room Air 04/08/17 11:36 97.4 99 18 95/53 Room Air 04/08/17 08:12 97.7 97 21 93/63 98 Room Air 04/08/17 05:33 96.4 89 20 99/69 98 Room Air Laboratory Tests 04/08/17 05:00: White Blood Count 6.2, Red Blood Count 4.05L, Hemoglobin 13.1, Hematocrit 38.7, Mean Corpuscular Volume 96, Mean Corpuscular Hemoglobin 32.4H, Mean Corpuscular Hemoglobin Concent 34.0, Red Cell Distribution Width 11.9, Platelet Count 210, Mean Platelet Volume 6.5, Neutrophils (%) (Auto) 65.5, Lymphocytes (%) (Auto) 20.5, Monocytes (%) (Auto) 9.5, Eosinophils (%) (Auto) 3.7H, Basophils (%) (Auto ) 0.8, Sodium Level 141, Potassium Level 3.8, Chloride Level 104, Carbon Dioxide Level 26, Anion Gap 11, Blood Urea Nitrogen 21, Creatinine 0.8, Estimat Glomerular Filtration Rate , Glucose Level 97, Calcium Level 9.3, Total Bilirubin 0.5, Aspartate Amino Transf (AST/SGOT) 17, Alanine Aminotransferase ( ALT/SGPT) 11, Alkaline Phosphatase 97, Total Protein 7.3, Albumin 3.8, Globulin 3.5, Albumin/Globulin Ratio 1.0, Thyroid Stimulating Hormone (TSH) 0.419 Height (Feet): 5 Height (Inches): 2.00 Weight (Pounds): 110 General Appearance: alert, confused, thin Neurologic: alert, responsive, disoriented Leonel Bland M.D. Apr 09, 2017 00:10
--- NOTE | 2017-04-09 15:31 | Discharge Summary ---
Discharge Summary Hospital Course Date of Admission Apr 07, 2017 at 12:23 Date of Discharge Apr 08, 2017 at 16:40 Admitting Diagnosis intractable hip pain HPI Janice Nobles is a 76 year old female who was admitted on Apr 07, 2017 at 12:23 for Intractable Hip Pain Hospital Course [id number] Discharge Discharge Disposition Patient was discharged to SNF/Subacute Facility Discharge Diagnoses: Isidra Vann NP Apr 09, 2017 15:31
--- NOTE | 2017-04-10 00:15 | Discharge Summary 2 SIG ---
DATE OF ADMISSION: 04/07/2017 DATE OF DISCHARGE: 04/08/2017 CONSULTANTS: 1. Leonel Bland M.D. 2. Mervin Steele M.D. 3. José Miguel Goncalves M.D. 4. Kiel Foreman M.D. BRIEF HOSPITAL COURSE: The patient is a 76-year-old female, who is a resident of [facility], presented to ER with increased hip pain, status post fall and increased confusion. On evaluation at ED, laboratories were all stable. CT of the pelvis showed no acute injury with osteoarthritis on both hips. The patient was admitted for further management. She was given pain management consisting of Merna. She was seen by event marketing specialist. There was no evidence of acute fracture and was recommended PT/OT. She underwent psychiatric evaluation and was diagnosed to have cognitive impairment with psychotic disorder, most likely schizophrenia. She was given Risperdal. The patient did not appear septic. There was no fever, no elevated WBC, and no local tenderness. Autoimmune workup pending. She was eventually discharged back to [facility]. FINAL DIAGNOSES: 1. Status post fall with hip pain. 2. Bilateral hip osteoarthritis. 3. Cognitive impairment with psychotic disorder, most likely schizophrenia. 4. Advanced dementia. DISPOSITION: Discharged back to [facility]. DISCHARGE MEDICATIONS: Refer to medication list. Scooter Woods D.O. I have been assigned to dictate discharge summary on this account and I was not involved in the patient's management. Isidra Vann N.P. DR: NICOL JOB#: [id number] CC:
== END 2017-04-08 16:40 | DRG 556 ==
LOC: EDBD 11:32 → EMR 12:05 → 4E 12:23 → EDBEDREQ 13:07 → 4W 18:43
DX: M25.552 Pain in left hip (principal); J44.9 Chronic obstructive pulmonary disease, unspecified; F03.90 Unspecified dementia, unspecified severity, without behavioral disturbance, psychotic disturbance, mood disturbance, and anxiety; M16.0 Bilateral primary osteoarthritis of hip; F20.9 Schizophrenia, unspecified; K40.90 Unilateral inguinal hernia, without obstruction or gangrene, not specified as recurrent; F41.9 Anxiety disorder, unspecified; R53.1 Weakness; F32.89 Other specified depressive episodes; M25.551 Pain in right hip; W18.30XA Fall on same level, unspecified, initial encounter; Y92.129 Unspecified place in nursing home as the place of occurrence of the external cause; Y99.8 Other external cause status
CPT/HCPCS: 36415; 72192; 80053; 84443; 85025; 85651; 86039; 86140; 86431; 87040; 87081; 99285